=== PATIENT | male | born 1940 | race Caucasian/White ===

== ENCOUNTER 2021-03-09 20:39 | Inpatient (IN) ==
[2021-03-09] MEDS ORDERED: NS 0.9% 1000 ml BAG 1,000 ML IV ONE (21:02)
[2021-03-09 21:39] LABS: INR 1.44 (0.86-1.15)
[2021-03-09 21:44] LABS: ALT 95 U/L (7-52); AST 104 U/L (13-39); Albumin 4.2 g/dL (3.2-5.2); Alkaline Phosphatase 79 U/L (35-149); Anion Gap 19 mmol/L (2-11); CO2 Carbon Dioxide 21 mmol/L (22-32); Calcium 9.5 mg/dL (8.6-10.3); Chloride 108 mmol/L (101-111); Creatine Kinase 1015 U/L (10-223); Globulin 4.4 g/dL (2-4); Glucose 206 mg/dL (70-100); Magnesium 3.6 mg/dL (1.9-2.7); Potassium 4.4 mmol/L (3.5-5.0); Sodium 148 mmol/L (135-145); Total Protein 8.6 g/dL (6.4-8.9)
[2021-03-09 21:48] LABS: Acetaminophen < 15 mcg/mL; Alcohol, S < 13 mg/dL (<13); Salicylate < 2.50 mg/dL (<30)
[2021-03-09 21:58] LABS: Blood Urea Nitrogen 149 mg/dL (6-24)
[2021-03-09 22:03] LABS: TSH Ultra Thyroid Stim Horm 1.28 mcIU/mL (0.34-5.60)
[2021-03-09 22:08] LABS: ABS Neutrophils 14.4 10^3/ul (1.5-7.7); ABS Nucleated RBC 0.1 10^3/ul; Hematocrit 59 % (42-52); Hemoglobin 19.6 g/dL (14.0-18.0); Lymphocyte % 5.8 %; Mean Corpuscular HGB Conc 33 g/dL (31-36); Mean Corpuscular Hemoglobin 30 pg (27-31); Mean Corpuscular Volume 91 fL (80-94); Nucleated Red Blood Cells % 0.4; Platelet Count 180 10^3/uL (150-450); Red Blood Count 6.47 10^6 /uL (4.18-5.48); Red Cell Distribution Width 14 % (10-15); White Blood Count 17.5 10^3/uL (3.5-10.8)
[2021-03-09] MEDS ORDERED: Piperacillin/Tazobac ADVAN 3.375 GM in NS 0.9% 100 ml BAG 100 ML IV ONE (22:22)
[2021-03-09] MEDS ORDERED: Thiamine 100 MG/ML 2 ml VIAL 100 MG, Folic Acid IV 1 MG, Multiple Vitamin IV ADULT 10 M... IV ONE (23:15)
[2021-03-09] MEDS ORDERED: NS 0.9% 1000 ml BAG 1,000 ML IV SCH (23:45)
[2021-03-09] MEDS ORDERED: NS 0.9% 500 ml BAG 500 ML IV ONE (23:55)
[2021-03-09] MEDS ORDERED: Lorazepam PYXIS KEY PRN (23:56)
[2021-03-09] MEDS ORDERED: LORazepam 2 mg VIAL 1 ml IV PUSH PRN (23:56)
[2021-03-10] MEDS ORDERED: Zosyn per Pharmacy NOTE FOLLOW UP SCH (01:00)
[2021-03-10 06:00] LABS: ABS Basophils 0.1 10^3/ul (0-0.2); ABS Lymphocytes 1.2 10^3/ul (1.0-4.8); ABS Monocytes 1.3 10^3/ul (0-0.8); ABS Neutrophils 14.2 10^3/ul (1.5-7.7); Hematocrit 54 % (42-52); Hemoglobin 17.8 g/dL (14.0-18.0); Lymphocyte % 7.1 %; Mean Corpuscular HGB Conc 33 g/dL (31-36); Mean Corpuscular Hemoglobin 30 pg (27-31); Mean Corpuscular Volume 91 fL (80-94); Mean Platelet Volume 10.9 fL (7.4-10.4); Nucleated Red Blood Cells % 0.1; Platelet Count 137 10^3/uL (150-450); Red Cell Distribution Width 14 % (10-15); White Blood Count 16.8 10^3/uL (3.5-10.8)
[2021-03-10] MEDS ORDERED: NS 0.9% 1000 ml BAG 1,000 ML IV SCH (06:00)
[2021-03-10] MEDS ORDERED: Piperacillin/Tazobac ADVAN 3.375 GM in NS 0.9% 100 ml BAG 100 ML IV SCH (06:00)
[2021-03-10 06:15] LABS: CO2 Carbon Dioxide 22 mmol/L (22-32); Calcium 8.3 mg/dL (8.6-10.3); Creatine Kinase 778 U/L (10-223); Glucose 182 mg/dL (70-100); Magnesium 3.4 mg/dL (1.9-2.7); Potassium 3.9 mmol/L (3.5-5.0); eGFR CKD-EPI 17.1 (>60)
[2021-03-10 06:23] LABS: Sodium 152 mmol/L (135-145)
[2021-03-10 06:24] LABS: Anion Gap 16 mmol/L (2-11); Chloride 114 mmol/L (101-111)
[2021-03-10 06:25] LABS: Troponin I 0.07 ng/mL (<0.03)
[2021-03-10] MEDS: Dexamethasone IV 4 MG/ML VIAL 1 ml VIAL IV SLOW PU SCH (06:26)
[2021-03-10] MEDS: Heparin 5000 UNITS/ML 1 mL VIAL SUBCUT SCH ×3 (06:26→21:25)
[2021-03-10 06:32] LABS: Blood Urea Nitrogen 145 mg/dL (6-24)
[2021-03-10] MEDS ORDERED: D5W 1/4 NS 1000 ml BAG 1,000 ML IV SCH (07:00)
[2021-03-10 08:04] LABS: C Reactive Protein 89.89 mg/L (<8.01)
[2021-03-10] MEDS: Multivitamins/Minerals TAB PO SCH ×2 (09:04→09:52)
[2021-03-10] MEDS: D5W 1/4 NS 1000 ml BAG 1,000 ML IV SCH ×2 (11:20→23:07)
[2021-03-10 13:10] LABS: Calcium 8.2 mg/dL (8.6-10.3); Potassium 4.3 mmol/L (3.5-5.0); eGFR CKD-EPI 16.9 (>60)
[2021-03-10] MEDS ORDERED: Piperacillin/Tazobac ADVAN 2.25 GM in NS 0.9% 100 ml BAG 100 ML IV SCH (17:00)
[2021-03-10] MEDS: TAZOBACTAM IVPB SCH (17:55)
[2021-03-10] MEDS: NS 0.9% IVPB SCH (17:55)
[2021-03-10] MEDS: PIPERACILLIN IVPB SCH (17:55)
[2021-03-10 20:40] LABS: Potassium 4.3 mmol/L (3.5-5.0)
[2021-03-10 22:20] LABS: Urine Benzodiazepine Screen None Detected (None Detect); Urine Cannabinoids Screen None Detected (None Detect); Urine Opiates Screen None Detected (None Detect)
[2021-03-10 22:21] LABS: Urine Appearance Clear; Urine Bilirubin Negative (Negative); Urine Blood 1+ (Negative); Urine Color Amber; Urine Glucose Negative (Negative); Urine Ketones Negative (Negative); Urine Nitrite Negative (Negative); Urine Protein 1+(30 mg/dL) (Negative); Urine Specific Gravity 1.018 (1.002-1.030); Urine Urobilinogen Negative (Negative)
[2021-03-10 22:24] LABS: Urine Bacteria Absent (Absent); Urine Red Blood Cell 2+(6-10/hpf) (Absent); Urine White Blood Cell 2+(11-20/hpf) (Absent)
[2021-03-11] MEDS: TAZOBACTAM IVPB SCH ×3 (01:02→17:16)
[2021-03-11] MEDS: NS 0.9% IVPB SCH ×3 (01:02→17:16)
[2021-03-11] MEDS: PIPERACILLIN IVPB SCH ×3 (01:02→17:16)
[2021-03-11] MEDS: Dexamethasone IV 4 MG/ML VIAL 1 ml VIAL IV SLOW PU SCH (05:26)
[2021-03-11] MEDS: Heparin 5000 UNITS/ML 1 mL VIAL SUBCUT SCH ×3 (05:31→21:22)
[2021-03-11 06:35] LABS: ABS Basophils 0.1 10^3/ul (0-0.2); ABS Lymphocytes 0.5 10^3/ul (1.0-4.8); ABS Monocytes 1.2 10^3/ul (0-0.8); ABS Neutrophils 11.2 10^3/ul (1.5-7.7); Hematocrit 47 % (42-52); Hemoglobin 15.7 g/dL (14.0-18.0); Lymphocyte % 3.6 %; Mean Corpuscular HGB Conc 34 g/dL (31-36); Mean Corpuscular Hemoglobin 31 pg (27-31); Mean Corpuscular Volume 91 fL (80-94); Mean Platelet Volume 11.1 fL (7.4-10.4); Nucleated Red Blood Cells % 0.1; Platelet Count 112 10^3/uL (150-450); Red Blood Count 5.12 10^6 /uL (4.18-5.48); Red Cell Distribution Width 14 % (10-15); White Blood Count 12.9 10^3/uL (3.5-10.8)
[2021-03-11 06:53] LABS: Albumin 3.2 g/dL (3.2-5.2); Albumin/Globulin Ratio 0.9 (1-3); Calcium 7.8 mg/dL (8.6-10.3); Globulin 3.5 g/dL (2-4); Magnesium 3.3 mg/dL (1.9-2.7); Total Bilirubin 0.9 mg/dL (0.2-1.0); Total Protein 6.7 g/dL (6.4-8.9); eGFR CKD-EPI 13.2 (>60)
[2021-03-11] MEDS: Multivitamins/Minerals TAB PO SCH (09:26)
[2021-03-11] MEDS: D5W 1/4 NS 1000 ml BAG 1,000 ML IV SCH (09:35)
[2021-03-11] MEDS: D5W 1000 ml BAG 1,000 ML IV SCH ×2 (11:03→18:43)
[2021-03-11 18:01] LABS: PCO2 Arterial 34 mmHg (35-45); PO2 Arterial 88 mmHg (80-100)
[2021-03-11 18:09] LABS: Calcium 7.5 mg/dL (8.6-10.3); Potassium 4.4 mmol/L (3.5-5.0); eGFR CKD-EPI 13.6 (>60)
[2021-03-11] MEDS ORDERED: Dextrose 50% Syringe 50 ml 25 GM/50 ML SYRINGE IV PUSH PRN (18:18)
[2021-03-11] MEDS: Thiamine 100 MG/ML 2 ml VIAL 500 MG in NS 0.9% 250 ml 250 ML IV SCH (21:19)
[2021-03-12] MEDS: PIPERACILLIN IVPB SCH ×2 (00:10→09:09)
[2021-03-12] MEDS: NS 0.9% IVPB SCH ×2 (00:10→09:09)
[2021-03-12] MEDS: TAZOBACTAM IVPB SCH ×2 (00:10→09:09)
[2021-03-12] MEDS: D5W 1000 ml BAG 1,000 ML IV SCH ×4 (02:51→23:16)
[2021-03-12 04:32] LABS: Troponin I 0.03 ng/mL (<0.03)
[2021-03-12 04:40] LABS: CO2 Carbon Dioxide 27 mmol/L (22-32); Calcium 7.6 mg/dL (8.6-10.3); Magnesium 3.3 mg/dL (1.9-2.7); Potassium 4.5 mmol/L (3.5-5.0)
[2021-03-12 04:41] LABS: Anion Gap 6 mmol/L (2-11); Chloride 117 mmol/L (101-111); Sodium 150 mmol/L (135-145)
[2021-03-12 04:46] LABS: Blood Urea Nitrogen 118 mg/dL (6-24); Glucose 185 mg/dL (70-100); eGFR CKD-EPI 21.5 (>60)
[2021-03-12] MEDS: Heparin 5000 UNITS/ML 1 mL VIAL SUBCUT SCH ×2 (05:41→13:44)
[2021-03-12] MEDS: Dexamethasone IV 4 MG/ML VIAL 1 ml VIAL IV SLOW PU SCH (05:42)
[2021-03-12] MEDS: Thiamine 100 MG/ML 2 ml VIAL 500 MG in NS 0.9% 250 ml 250 ML IV SCH ×3 (07:46→20:06)
[2021-03-12] MEDS: Multivitamins/Minerals TAB PO SCH (07:52)
[2021-03-12 08:16] LABS: ABS Lymphocytes 0.4 10^3/ul (1.0-4.8); ABS Monocytes 0.6 10^3/ul (0-0.8); ABS Neutrophils 7.1 10^3/ul (1.5-7.7); Hematocrit 43 % (42-52); Hemoglobin 14.8 g/dL (14.0-18.0); Lymphocyte % 5.1 %; Mean Corpuscular HGB Conc 34 g/dL (31-36); Mean Corpuscular Hemoglobin 31 pg (27-31); Mean Corpuscular Volume 90 fL (80-94); Mean Platelet Volume 10.4 fL (7.4-10.4); Platelet Count 92 10^3/uL (150-450); Red Blood Count 4.78 10^6 /uL (4.18-5.48); Red Cell Distribution Width 14 % (10-15); White Blood Count 8.1 10^3/uL (3.5-10.8)
[2021-03-12 08:46] LABS: Troponin I 0.03 ng/mL (<0.03)
[2021-03-12 12:27] LABS: C Reactive Protein 13.51 mg/L (<8.01)
[2021-03-12 12:53] LABS: Folate 7.29 ng/mL (5.90-24.80)
[2021-03-12 12:54] LABS: Vitamin B12 910 pg/mL (180-914)
[2021-03-12 12:56] LABS: CO2 Carbon Dioxide 20 mmol/L (22-32); Calcium 7.4 mg/dL (8.6-10.3)
[2021-03-12 13:02] LABS: Anion Gap 10 mmol/L (2-11); Blood Urea Nitrogen 110 mg/dL (6-24); Chloride 117 mmol/L (101-111); Glucose 231 mg/dL (70-100); Sodium 147 mmol/L (135-145); eGFR CKD-EPI 26.9 (>60)
[2021-03-12 13:16] LABS: Hematocrit 45 % (42-52); Mean Corpuscular HGB Conc 34 g/dL (31-36); Mean Corpuscular Hemoglobin 31 pg (27-31); Mean Corpuscular Volume 91 fL (80-94); Red Blood Count 4.91 10^6 /uL (4.18-5.48); Red Cell Distribution Width 14 % (10-15); White Blood Count 6.2 10^3/uL (3.5-10.8)
[2021-03-12 13:24] LABS: ALT 54 U/L (7-52); AST 39 U/L (13-39); Alkaline Phosphatase 50 U/L (35-149); Blood Urea Nitrogen 103 mg/dL (6-24); CO2 Carbon Dioxide 27 mmol/L (22-32); Calcium 7.7 mg/dL (8.6-10.3); Cholesterol 110 mg/dL; Globulin 2.9 g/dL (2-4); Glucose 257 mg/dL (70-100); HDL Cholesterol 20.7 mg/dL; LDL Cholesterol 54 mg/dL; Magnesium 3.1 mg/dL (1.9-2.7); Potassium 4.2 mmol/L (3.5-5.0); Total Protein 5.9 g/dL (6.4-8.9); Triglycerides 176 mg/dL; eGFR CKD-EPI 29.4 (>60)
[2021-03-12 13:31] LABS: Activated Partial Thrombo Time 27.9 seconds (26.0-38.0); INR 1.17 (0.86-1.15)
[2021-03-12 13:43] LABS: Anion Gap 5 mmol/L (2-11); Chloride 116 mmol/L (101-111); Sodium 148 mmol/L (135-145)
[2021-03-12 13:48] LABS: Troponin I 0.03 ng/mL (<0.03)
[2021-03-12 14:29] LABS: ABS Lymphocytes 0.3 10^3/ul (1.0-4.8); ABS Monocytes 0.3 10^3/ul (0-0.8); ABS Neutrophils 5.5 10^3/ul (1.5-7.7); Lymphocyte % 5.5 %; Mean Platelet Volume 10.1 fL (7.4-10.4); Nucleated Red Blood Cells % 0.1; Platelet Count 86 10^3/uL (150-450)
[2021-03-12 15:58] LABS: Erythrocyte Sed Rate 15 mm/Hr (0-19)
[2021-03-12 16:00] LABS: Urine Creatinine Concentration 54.04 mg/dL; Urine Sodium Concentration < 18 mmol/L
[2021-03-12] MEDS: ZOSYN 3.375 GM Q8H per EXTENDED INFUSION IV SCH (17:45)
[2021-03-13] MEDS: ZOSYN 3.375 GM Q8H per EXTENDED INFUSION IV SCH ×3 (00:41→18:01)
[2021-03-13] MEDS: Dexamethasone IV 4 MG/ML VIAL 1 ml VIAL IV SLOW PU SCH (05:11)
[2021-03-13 06:40] LABS: Albumin 2.8 g/dL (3.2-5.2); Calcium 7.2 mg/dL (8.6-10.3); Globulin 2.9 g/dL (2-4); Potassium 3.9 mmol/L (3.5-5.0); Total Bilirubin 0.8 mg/dL (0.2-1.0); Total Protein 5.7 g/dL (6.4-8.9); eGFR CKD-EPI 48.5 (>60)
[2021-03-13 06:51] LABS: ABS Lymphocytes 0.4 10^3/ul (1.0-4.8); ABS Monocytes 0.6 10^3/ul (0-0.8); ABS Neutrophils 6.5 10^3/ul (1.5-7.7); Hematocrit 42 % (42-52); Hemoglobin 14.4 g/dL (14.0-18.0); Lymphocyte % 5.9 %; Mean Corpuscular HGB Conc 34 g/dL (31-36); Mean Corpuscular Hemoglobin 30 pg (27-31); Mean Corpuscular Volume 90 fL (80-94); Mean Platelet Volume 10.6 fL (7.4-10.4); Nucleated Red Blood Cells % 0.1; Platelet Count 97 10^3/uL (150-450); Red Blood Count 4.72 10^6 /uL (4.18-5.48); Red Cell Distribution Width 14 % (10-15); White Blood Count 7.5 10^3/uL (3.5-10.8)
[2021-03-13] MEDS ORDERED: D5W 1/2 NS 1000 ml BAG 1,000 ML IV SCH (09:00)
[2021-03-13] MEDS: Thiamine 100 MG/ML 2 ml VIAL 500 MG in NS 0.9% 250 ml 250 ML IV SCH ×3 (09:16→22:32)
[2021-03-13] MEDS: Aspirin EC 81 mg TAB.EC (enteric coated) PO SCH (09:17)
[2021-03-13] MEDS: Multivitamins/Minerals TAB PO SCH (09:17)
[2021-03-13] MEDS: cefTRIAXone 1 gm/50 mL NS BAG 1 GM/50 ML BAG IVPB SCH (22:31)
[2021-03-14 07:53] LABS: Calcium 7.2 mg/dL (8.6-10.3); Magnesium 2.9 mg/dL (1.9-2.7); Phosphorus 2.1 mg/dL (2.5-5.0); Potassium 3.6 mmol/L (3.5-5.0); eGFR CKD-EPI 62.5 (>60)
[2021-03-14 08:18] LABS: ABS Lymphocytes 0.6 10^3/ul (1.0-4.8); ABS Monocytes 0.6 10^3/ul (0-0.8); ABS Neutrophils 6.2 10^3/ul (1.5-7.7); Eosinophil % 0.1 %; Hematocrit 39 % (42-52); Hemoglobin 13.6 g/dL (14.0-18.0); Lymphocyte % 7.6 %; Mean Corpuscular HGB Conc 35 g/dL (31-36); Mean Corpuscular Hemoglobin 31 pg (27-31); Mean Corpuscular Volume 89 fL (80-94); Nucleated Red Blood Cells % 0.1; Platelet Count 96 10^3/uL (150-450); Red Blood Count 4.41 10^6 /uL (4.18-5.48); Red Cell Distribution Width 13 % (10-15); White Blood Count 7.5 10^3/uL (3.5-10.8)
[2021-03-14] MEDS: Aspirin EC 81 mg TAB.EC (enteric coated) PO SCH (09:38)
[2021-03-14] MEDS: Multivitamins/Minerals TAB PO SCH (09:39)
[2021-03-14] MEDS: Thiamine 100 MG/ML 2 ml VIAL 500 MG in NS 0.9% 250 ml 250 ML IV SCH ×2 (12:05→15:39)
[2021-03-14] MEDS: cefTRIAXone 1 gm/50 mL NS BAG 1 GM/50 ML BAG IVPB SCH (16:44)
[2021-03-14 20:24] LABS: HIT ELISA 0.068 OD (<0.400); Heparin PF4 Antibody Interp Negative (Negative)
[2021-03-14] MEDS ORDERED: Potassium Phosphate IV 10 MMOLE in NS 0.9% 250 ml 250 ML IVPB ONE (20:25)
[2021-03-15 07:30] LABS: Calcium 7.3 mg/dL (8.6-10.3); Magnesium 2.6 mg/dL (1.9-2.7); Phosphorus 3.3 mg/dL (2.5-5.0); Potassium 4.4 mmol/L (3.5-5.0); eGFR CKD-EPI 72.7 (>60)
[2021-03-15] MEDS: Aspirin EC 81 mg TAB.EC (enteric coated) PO SCH (09:00)
[2021-03-15] MEDS: Multivitamins/Minerals TAB PO SCH (09:25)
[2021-03-15] MEDS: Thiamine 100 MG/ML 2 ml VIAL 250 MG in NS 0.9% 100 ml BAG 100 ML IV SCH (10:44)
[2021-03-15] MEDS ORDERED: NS 0.45% 1000 ml BAG 1,000 ML IV SCH (12:00)
[2021-03-15] MEDS ORDERED: Enoxaparin 40 MG/0.4 ML SYR SUBCUT SCH (17:00)
[2021-03-16 06:50] LABS: ABS Eosinophils 0.2 10^3/ul (0-0.6); ABS Lymphocytes 0.7 10^3/ul (1.0-4.8); ABS Monocytes 0.5 10^3/ul (0-0.8); ABS Neutrophils 5.1 10^3/ul (1.5-7.7); Eosinophil % 2.4 %; Hematocrit 39 % (42-52); Hemoglobin 13.1 g/dL (14.0-18.0); Lymphocyte % 11.2 %; Mean Corpuscular HGB Conc 34 g/dL (31-36); Mean Corpuscular Hemoglobin 31 pg (27-31); Mean Corpuscular Volume 91 fL (80-94); Mean Platelet Volume 10.6 fL (7.4-10.4); Platelet Count 88 10^3/uL (150-450); Red Blood Count 4.23 10^6 /uL (4.18-5.48); Red Cell Distribution Width 14 % (10-15); White Blood Count 6.5 10^3/uL (3.5-10.8)
[2021-03-16 07:13] LABS: Albumin 2.5 g/dL (3.2-5.2); Calcium 7.2 mg/dL (8.6-10.3); Globulin 2.6 g/dL (2-4); Potassium 3.9 mmol/L (3.5-5.0); Total Bilirubin 0.9 mg/dL (0.2-1.0); Total Protein 5.1 g/dL (6.4-8.9); eGFR CKD-EPI 80.9 (>60)
[2021-03-16] MEDS: Thiamine 100 MG/ML 2 ml VIAL 250 MG in NS 0.9% 100 ml BAG 100 ML IV SCH (11:34)
[2021-03-16] MEDS: Aspirin EC 81 mg TAB.EC (enteric coated) PO SCH (11:34)
[2021-03-16] MEDS: Multivitamins/Minerals TAB PO SCH (11:34)
[2021-03-16 11:56] VITALS: BP 128/51
== END 2021-03-16 14:00 | disposition swing bed (61) | DRG 871 ==
LOC: ED 20:39 → SUATTDRO 23:44 → EDHOLD 23:44 → MEDTELE 03-10 01:01 → MED 03-10 04:28
PROVIDERS: ADMIT Internal Medicine; ATTEND Hospitalist

== ENCOUNTER 2021-03-16 16:04 | Inpatient (IN) ==
[2021-03-16] MEDS ORDERED: Al Hydrox/Mg Hydrox/Simet LIQ 30 ML UDC PO PRN (17:43)
[2021-03-16] MEDS ORDERED: Dextrose 50% Syringe 50 ml 25 GM/50 ML SYRINGE IV PUSH PRN (17:46)
[2021-03-16] MEDS: Enoxaparin 40 MG/0.4 ML SYR SUBCUT SCH (21:24)
[2021-03-17] MEDS: Multivitamins/Minerals TAB PO SCH (09:40)
[2021-03-17] MEDS: Enoxaparin 40 MG/0.4 ML SYR SUBCUT SCH (21:59)
[2021-03-18] MEDS: Multivitamins/Minerals TAB PO SCH (10:42)
[2021-03-18] MEDS: Enoxaparin 40 MG/0.4 ML SYR SUBCUT SCH (20:33)
[2021-03-19] MEDS: Multivitamins/Minerals TAB PO SCH (10:03)
[2021-03-19] MEDS: Enoxaparin 40 MG/0.4 ML SYR SUBCUT SCH (21:15)
[2021-03-20] MEDS: Multivitamins/Minerals TAB PO SCH (10:39)
[2021-03-20] MEDS: Enoxaparin 40 MG/0.4 ML SYR SUBCUT SCH (19:49)
[2021-03-20 20:00] LABS: Rapid COVID-19 Molecular Undetected (Undetected)
[2021-03-21] MEDS: Multivitamins/Minerals TAB PO SCH (08:28)
[2021-03-21] MEDS: Enoxaparin 40 MG/0.4 ML SYR SUBCUT SCH (20:05)
[2021-03-22] MEDS: Multivitamins/Minerals TAB PO SCH (07:41)
[2021-03-22 11:03] VITALS: BP 110/56
== END 2021-03-22 11:40 | DRG 177 ==
LOC: MED 16:04 → SUATTDRO 16:04
PROVIDERS: ADMIT Hospitalist; ATTEND Student in an Organized Health Care Education/Training Program